=== PATIENT | female | born 1960 | race Caucasian/White ===

== ENCOUNTER 2021-07-24 17:43 | Emergency (ER) | payer OTHER ==
--- NOTE | 2021-07-24 18:23 | PHYS DOC ---
General Adult EDM: Chief Complaint: SHOULDER INJURY HPI: HPI: ".. I was playing with my grand joy.. and the chair got pulled over.. and I reached to catch it.. and slipped on the hardwood floors.. and dislocated this Lt shoulder.. She was doing a xray.. it popped back into place... " Patient is a 61 year old female who presents with above hx and complaints of fall and Lt shoulder injury. Patient had an obvious left shoulder dislocation. Did have deltoid sensation. Patient also has contusion to u pper lip urgency hit the floor on her face. Patient has good bite. Patient denies any loss of consciousness. Patient denies any other injury. Pt. seen in waiting room, no beds in Emergency room. Patient does not have any previous history of left shoulder dislocation. Patient normally follows with Dr. Royce Thurman at [facility]. Pt. Rt hand dominant. Review of Systems: Review of Systems: Constitutional: Denies fever or chills Eyes: Denies change in visual acuity HENT: Denies nasal congestion or sore throat . Complaints of mouth contusion. Respiratory: Denies cough or shortness of breath Cardiovascular: Denies chest pain or edema GI: Denies abdominal pain, nausea, vomiting, bloody stools or diarrhea : Denies dysuria Musculoskeletal: Complaints on Lt shoulder dislocation Integument: Denies rash Neurologic: Denies headache, focal weakness or sensory changes Endocrine: Denies polyuria or polydipsia Lymphatic: Denies swollen glands Psychiatric: Denies depression or anxiety Family History: Family History: Noncontributory presentation Current Medications: Current Meds: See nursing for home meds Allergies: Allergies: See nursing Physical Exam: PE: Constitutional: inacute distress, non-toxic appearance. [] HENT: Normocephalic, contusion upper lip, bilateral external ears normal, oropharynx moist, no oral exudates, nose normal. [] Eyes: PERRLA, EOMI, conjunctiva normal, no discharge. [] Neck: Normal range of motion, no tenderness, supple, no stridor. [] Cardiovascular:Heart rate regular rhythm, no murmur [] Lungs & Thorax: Bilateral breath sounds clear to auscultation [] Abdomen: Bowel sounds normal, soft, no tenderness, no masses, no pulsatile masses. [] Skin: Warm, dry, no erythema, no rash. [] Back: No tenderness, no CVA tenderness. [] Extremities: No tenderness, no cyanosis, no clubbing, ROM intact, no edema. Left shoulder dislocation. Spontaneous reduction during x-ray. Does have deltoid sensation. Rings removed from left hand. Neurologic: Alert and oriented X 3, normal motor function, normal sensory function, no focal deficits noted. [] Psychologic: Affect normal, judgement normal, mood normal. [] EKG: EKG: [] Radiology/Procedures: Radiology/Procedures: [address] [id number] IMAGING REPORT Signed PATIENT: SOCORRO GÓMEZ ACCOUNT: [id number] : 1960 LOCATION: ER AGE: 61 SEX: F EXAM STATUS: REG ER ORD. PHYSICIAN: MONET BARTON MD REASON: fall PROCEDURE: HUMERUS LEFT XR HUMERUS_LT 2 VIEWS History: Reason: fall / Spl. Instructions: / History: . Pain Technique: 2 views left humerus Comparison: None. Findings: Degraded evaluation due to difficulty with patient positioning. Left anterior inferior glenohumeral dislocation. No definite acute fracture. Impression: 1. Left anterior inferior glenohumeral dislocation. Electronically signed by: Matt Storm DO (07/24/2021 7:03 PM) [facility] DICTATED AND SIGNED BY: MATT STORM DO DATE: 07/24/211901 CC: MONET BARTON MD; ELISE THURMAN MD ~MTH0 0 [][address] [id number] IMAGING REPORT Signed PATIENT: SOCORRO GÓMEZ ACCOUNT: [id number] : 1960 LOCATION: ER AGE: 61 SEX: F EXAM STATUS: REG ER ORD. PHYSICIAN: MONET BARTON MD REASON: fall PROCEDURE: SHOULDER 2+V LEFT XR SHOULDER_LEFT 2+ VIEWS History: Reason: fall / Spl. Instructions: / History: . Pain Technique: 3 views left shoulder Comparison: July 24, 2021 Findings: Interval reduction left glenohumeral dislocation. No acute fracture. Impression: 1. Interval reduction left glenohumeral dislocation. Electronically signed by: Matt Storm DO (07/24/2021 7:05 PM) [facility] DICTATED AND SIGNED BY: MATT STORM DO DATE: 07/24/211902 CC: MONET BARTON MD; ELISE THURMAN MD ~MTH0 0 Heart Score: C/O Chest Pain: N/A Risk Factors: Risk Factors: DM, Current or recent (<one month) smoker, HTN, HLP, family history of CAD, obesity. Risk Scores: Score 0 - 3: 2.5% MACE over next 6 weeks - Discharge Home Score 4 - 6: 20.3% MACE over next 6 weeks - Admit for Clinical Observation Score 7 - 10: 72.7% MACE over next 6 weeks - Early Invasive Strategies Course & Med Decision Making: Course & Med Decision Making Pertinent Labs and Imaging studies reviewed. (See chart for details) Tylenol and ibuprofen for pain. Wear sling and swath. Follow-up with orthopedics. Monitor for distal circulation. Do not put rings on hand since fingers may swell. Return if any concerns. Distal neurovascular intact post sporntaneous reduction 1. Shoulder dilocation and spine tenuous reduction during x-ray- Lt. [] Dragon Disclaimer: Dragon Disclaimer: This electronic medical record was generated, in whole or in part, using a voice recognition dictation system. Departure Departure: Referrals: NON,STAFF (PCP) Dragon Disclaimer This chart was dictated in whole or in part using Voice Recognition software in a busy, high-work load, and often noisy Emergency Department environment. It may contain unintended and wholly unrecognized errors or omissions. Dragon Disclaimer This chart was dictated in whole or in part using Voice Recognition software in a busy, high-work load, and often noisy Emergency Department environment. It may contain unintended and wholly unrecognized errors or omissions. Dragon Disclaimer This chart was dictated in whole or in part using Voice Recognition software in a busy, high-work load, and often noisy Emergency Department environment. It may contain unintended and wholly unrecognized errors or omissions. MONET BARTON MD Jul 24, 2021 18:23
[2021-07-24] MEDS: oxyCODONE/APAP 5/325 1 TAB TABLET PO ONE (19:00)
--- NOTE | 2021-07-24 19:06 | RAD ---
XR HUMERUS_LT 2 VIEWS History: Reason: fall / Spl. Instructions: / History: . Pain Technique: 2 views left humerus Comparison: None. Findings: Degraded evaluation due to difficulty with patient positioning. Left anterior inferior glenohumeral d islocation. No definite acute fracture. Impression: 1. Left anterior inferior glenohumeral dislocation. Electronically signed by: Matt Storm DO (07/24/2021 7:03 PM) [facility]
--- NOTE | 2021-07-24 19:07 | RAD ---
XR SHOULDER_LEFT 2+ VIEWS History: Reason: fall / Spl. Instructions: / History: . Pain Technique: 3 views left shoulder Comparison: July 24, 2021 Findings: Interval reduction left glenohumeral dislocation. No acute fracture. Impression: 1. Interval reduction left glenohumeral dislocation. Electronically signed by: Matt Storm DO (07/24/2021 7:05 PM) [facility]
[2021-07-24] MEDS ORDERED: oxyCODONE/APAP 5/325 1 TAB TABLET ONE (19:30)
== END 2021-07-24 19:37 | disposition home or self-care (01) ==
LOC: ER 17:43
DX: S43.005A Unspecified dislocation of left shoulder joint, initial encounter (principal); S00.531A Contusion of lip, initial encounter; W18.39XA Other fall on same level, initial encounter; Y93.89 Activity, other specified; Y92.89 Other specified places as the place of occurrence of the external cause; Y99.8 Other external cause status
CPT/HCPCS: 29240; 73030; 73060; 99284